=== PATIENT | male | born 1965 | race Caucasian/White ===

== ENCOUNTER 2020-03-21 12:38 | Day surgery (SDC) | payer BC, MEDICARE, OTHER ==
[~2020-03-21] VITALS: Ht 165.1 cm; Wt 78.0 kg
[~2020-03-21 12:38] MED LIST: [UNRECOGNIZED DRUG - REMARK] MC SCH
[2020-03-21] MEDS ORDERED: SODIUM CHLORIDE 0.9% 1,000ML IVBOLUS ONE (13:00)
[2020-03-21] MEDS ORDERED: SODIUM CHLORIDE FLUSH 10ML SYR IVF ONE (13:00)
[2020-03-21 13:09] LABS: BASOPHILS # (AUTO) 0.02 x10^3/uL (0-0.1); BASOPHILS % (AUTO) 0 % (0-1); EOSINOPHILS # (AUTO) 0.06 x10^3/uL (0-0.4); EOSINOPHILS % (AUTO) 1 % (1-7); LYMPHOCYTES # (AUTO) 1.24 x10^3/uL (1-3.4); LYMPHOCYTES % (AUTO) 22 % (22-44); MD NO; MEAN CORPUSCULAR HEMOGLOBIN 31.2 pg (27.5-34.5); MEAN CORPUSCULAR HGB CONC 34.3 g/dL (33.2-36.2); MEAN PLATELET VOLUME 7.4 fL (7.4-10.4); MONOCYTES # (AUTO) 0.47 x10^3/uL (0.2-0.8); MONOCYTES % (AUTO) 8 % (2-9); NEUTROPHILS # (AUTO) 3.85 x10^3/uL (1.8-6.8); NEUTROPHILS % (AUTO) 68 % (42-75); PLATELET COUNT 233 x10^3/uL (130-400); RED BLOOD COUNT 5.18 x10^6/uL (4.38-5.82); RED CELL DISTRIBUTION WIDTH 12.6 % (9.4-14.8)
[2020-03-21 13:17] LABS: ALBUMIN 3.5 g/dL (3.4-5.0); ANION GAP 7 mmol/L (5-15); CHLORIDE 106 mmol/L (98-107)
[2020-03-21 13:21] LABS: ALANINE AMINOTRANSFERASE 51 U/L (12-78); ALKALINE PHOSPHATASE 74 U/L (45-117); BILIRUBIN,TOTAL 0.4 mg/dL (0.2-1.0); CREATININE 1.42 mg/dL (0.7-1.3); TOTAL PROTEIN 7.1 g/dL (6.4-8.2); TROPONIN I < 0.015 ng/mL (0.000-0.045)
--- NOTE | 2020-03-21 13:30 | NUR ---
Brought in by [place] from work with chief complaint of dizziness, abd pain, cp, & right arm pain starting today. 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 pt not in distress, resp even and unlabored
--- NOTE | 2020-03-21 14:30 | NUR ---
pt resting, ivf. vss
[2020-03-21] MEDS ORDERED: LACTATED RINGERS 1,000 ML IV SCH ×2 (15:20→21:30)
--- NOTE | 2020-03-21 15:33 | NUR ---
AT BEDSIDE FOR REASSMENT
--- NOTE | 2020-03-21 15:54 | NUR ---
PT PLAN FOR ADMIT FOR POSSIBLE SURGERY.
--- NOTE | 2020-03-21 16:18 | NUR ---
BOONE IDALIA FOR 1800
[2020-03-21] MEDS ORDERED: CEFTRIAXONE PMX 1GM/50ML 50 ML ONE ×2 (16:27→17:17)
[2020-03-21] MEDS ORDERED: METRONIDAZOLE PMX 500MG/100ML 100 ML ONE (16:27)
[2020-03-21] MEDS ORDERED: CEFTRIAXONE PMX 1GM/50ML 50 ML IV ONE (16:30)
[2020-03-21] MEDS ORDERED: METRONIDAZOLE PMX 500MG/100ML 100 ML IV ONE (16:30)
--- NOTE | 2020-03-21 17:00 | NUR ---
NPO AT 10 AM
--- NOTE | 2020-03-21 17:07 | NUR ---
RAPID COVID TEST COMPLETE
--- NOTE | 2020-03-21 17:12 | NUR ---
REPORT TO OR
[2020-03-21] MEDS ORDERED: MORPHINE SULFATE 4 MG/ML, 1ML ONE (17:23)
[2020-03-21] MEDS ORDERED: ONDANSETRON 2MG/ML, 2ML IVPush PRN ×3 (17:30→21:30)
[2020-03-21] MEDS ORDERED: METRONIDAZOLE PMX 500MG/100ML 100 ML IV SCH (17:30)
[2020-03-21] MEDS ORDERED: morphine SULFATE 10 MG/ML, 1ML IVPush PRN ×2 (17:30→18:30)
[2020-03-21] MEDS ORDERED: LABETALOL 5MG/ML, 20ML IVPush PRN (17:30)
[2020-03-21] MEDS ORDERED: hydrALAzine 20 MG/ML, 1ML IVPush PRN (17:30)
[2020-03-21] MEDS ORDERED: MORPHINE SULFATE 4 MG/ML, 1ML IVPush PRN ×2 (17:30→21:30)
[2020-03-21] MEDS ORDERED: ACETAMINOPHEN 325 MG TABLET PO PRN ×2 (17:30→18:30)
[2020-03-21] MEDS ORDERED: PLEASE ENTER ALLERGIES MC SCH ×2 (18:00→21:00)
[2020-03-21] MEDS ORDERED: BUPIVACAINE/EPI 0.5% 1:200K ONE (18:06)
[2020-03-21] MEDS ORDERED: CEFOTETAN PMX 2GM/50ML 50 ML ONE (18:11)
[2020-03-21] MEDS ORDERED: FENTANYL PF 250 MCG/5ML ONE (18:11)
[2020-03-21] MEDS ORDERED: MIDAZOLAM 1 MG/ML, 2ML ONE ×2 (18:11→18:22)
[2020-03-21] MEDS ORDERED: BUPIVACAINE/PF-EPI 0.5% 1:200K IM ONE (18:18)
[2020-03-21] MEDS ORDERED: SUCCINYLCHOLINE 20 MG/ML, 10ML ONE ×2 (18:22→18:35)
[2020-03-21] MEDS ORDERED: KETOROLAC 30 MG/1 ML ONE ×2 (18:22→18:45)
[2020-03-21] MEDS ORDERED: PROPOFOL 10 MG/ML, 20ML ONE ×2 (18:22→18:35)
[2020-03-21] MEDS ORDERED: ROCURONIUM 10MG/ML,5ML ONE ×2 (18:22→18:35)
[2020-03-21] MEDS ORDERED: DEXAMETHASONE 4 MG/ML, 1ML ONE ×2 (18:22→18:31)
[2020-03-21] MEDS ORDERED: CEFOTETAN 2 GM ONE (18:22)
[2020-03-21] MEDS ORDERED: SUGAMMADEX 200 MG/2 ML IVPush ONE ×2 (18:22→18:52)
[2020-03-21] MEDS ORDERED: ONDANSETRON 2MG/ML, 2ML ONE ×2 (18:22→18:45)
[2020-03-21] MEDS ORDERED: hydrALAzine 20 MG/ML, 1ML IV PRN (18:30)
[2020-03-21] MEDS ORDERED: LABETALOL 5MG/ML, 20ML IV PRN (18:30)
[2020-03-21] MEDS ORDERED: HYDROmorphone 1 MG/ML, 1ML INJ IVPush PRN (18:30)
[2020-03-21] MEDS ORDERED: MEPERIDINE/PF 25MG/0.5ML IVPush PRN (18:30)
[2020-03-21] MEDS ORDERED: OXYcodone 5 MG/5 ML ORAL.SOL UDC PO PRN (18:30)
[2020-03-21] MEDS ORDERED: OXYcodone 5 MG/5 ML ORAL.SOL UDC ONE ×2 (19:47→20:42)
[2020-03-21] MEDS ORDERED: FENTANYL PF 100 MCG/2ML ONE ×2 (19:47→20:42)
[2020-03-21] MEDS: FENTANYL PF 100 MCG/2ML IV PRN ×2 (19:48→19:53)
[2020-03-21] MEDS ORDERED: MEPERIDINE/PF 25MG/ML,1ML ONE (20:42)
[2020-03-21 20:45] VITALS: BP 123/74
[2020-03-21 20:53] VITALS: BP 123/76
[2020-03-21] MEDS ORDERED: HYDROcodone/APAP 5/325 TABLET PO PRN (21:30)
[2020-03-21] MEDS ORDERED: OXYcodone/APAP 5/325MG TABLET PO PRN (21:30)
[2020-03-21] MEDS ORDERED: HYDROmorphone 2 MG/ML, 1ML IV PRN (21:30)
[2020-03-21] MEDS ORDERED: HYDR-3240 PO (22:10)
[2020-03-22] MEDS ORDERED: SENNA/DOCUSATE TABLET PO SCH (09:00)
[2020-03-22] MEDS ORDERED: CHLORTHALIDONE 25 MG TABLET PO SCH (09:00)
[2020-03-22] MEDS ORDERED: AMLODIPINE 10 MG TAB PO ONE (09:00)
[2020-03-22] MEDS ORDERED: CEFTRIAXONE PMX 2GM/50ML 50 ML IV SCH (16:30)
== END 2020-03-21 23:33 | disposition home or self-care (01) ==
LOC: ED 14:10 → EDIP 15:55 → OUT 15:55 → UNDOADMIN 15:55 → SUATTDRO 16:15 → 4NE 20:43 → EDIP 20:43 → UNDODISIN 23:33 → OUT 23:33
PROVIDERS: ATTEND Emergency Medicine
DX: K80.12 Calculus of gallbladder with acute and chronic cholecystitis without obstruction (principal); Z20.828 Contact with and (suspected) exposure to other viral communicable diseases; K82.8 Other specified diseases of gallbladder; I10 Essential (primary) hypertension; I45.6 Pre-excitation syndrome; N17.9 Acute kidney failure, unspecified; G62.9 Polyneuropathy, unspecified; Z79.899 Other long term (current) drug therapy; Z87.442 Personal history of urinary calculi; Z87.891 Personal history of nicotine dependence; Z90.49 Acquired absence of other specified parts of digestive tract; Z98.1 Arthrodesis status; Z82.49 Family history of ischemic heart disease and other diseases of the circulatory system
CPT/HCPCS: 36415; 47562; 71045; 76700; 80053; 83690; 84484; 85025; 87635; 88304; 93005; 96361; 96365; 96368; 96375; 99285; C1760; J0330; J0696; J1100; J1885; J2250; J2270; J2405; J2704; J3010; J3490; J7030; G0378